=== PATIENT | female | born 1995 | race Caucasian/White ===

== ENCOUNTER 2020-05-18 06:32 | Day surgery (SDC) | payer OTHER ==
[~2020-05-18] VITALS: Ht 157.5 cm; Wt 88.5 kg
[2020-05-18] MEDS ORDERED: OMEP20TC12 PO (07:53)
[2020-05-18] MEDS ORDERED: MIDAZOLAM 2 MG/2 ML VIAL ONE ×2 (07:56→07:57)
[2020-05-18] MEDS ORDERED: fentaNYL citrate 0.05 MG/ML VIAL ONE (07:56)
[2020-05-18] MEDS ORDERED: LIDOCAINE VISCOUS 2% 20 ML UDC ONE (07:56)
[2020-05-18] MEDS ORDERED: fentaNYL citrate 0.05 MG/ML VIAL IVP ONE (14:25)
[2020-05-18] MEDS ORDERED: MIDAZOLAM 2 MG/2 ML VIAL IVP ONE (14:25)
[2020-05-18] MEDS ORDERED: LIDOCAINE VISCOUS 2% 20 ML UDC PO SCH (14:25)
== END 2020-05-18 09:45 | disposition home or self-care (01) ==
LOC: MDS 06:32 → MFCC 06:43 → MDS 09:45
PROVIDERS: ATTEND Internal Medicine Gastroenterology
DX: R10.9 Unspecified abdominal pain (principal); K21.9 Gastro-esophageal reflux disease without esophagitis; Z79.899 Other long term (current) drug therapy
CPT/HCPCS: 43235; 81025; J2250; J3010; J7030